=== PATIENT | female | born 1955 | race Caucasian/White ===

== ENCOUNTER → 2016-12-02 | Outpatient (CLI) | payer OTHER ==
[~2016-12-02] MED LIST: ASPIRIN81 M1 PO; CIPROFLOXACIN500 MG PO; FISH OIL 10001000 MG PO; HYDROCHLOROTH12.5 MG PO; LISINOPRIL20 MG PO; NITROSTAT0.4 MG SL; PYRIDIUM200 MG PO; SYNTHROID,LEV100 MCG PO
== END | disposition home or self-care (01) ==
LOC: ORTHO 02:11
DX: M79.641 Pain in right hand (principal); M79.642 Pain in left hand

== ENCOUNTER → 2017-05-04 | Outpatient (CLI) | payer OTHER ==
[2017-05-04 06:04] LABS: BASO # 0.1 10*3/uL (0.0-0.1); BASO % 1.4 % (0.0-1.0); EOS # 0.2 10*3/uL (0.0-0.4); HEMATOCRIT 39.5 % (37.0-47.0); HEMOGLOBIN 12.7 g/dl (12.0-16.0); LYMPH # 1.6 10*3/uL (1.3-4.4); LYMPH % 31.2 % (27.0-41.0); MEAN CELL VOLUME 93.8 fl (81.0-99.0); MEAN CORPUSCULAR HGB 30.2 pg (27.0-31.0); MEAN CORPUSCULAR HGB CONC 32.2 g/dl (33.0-37.0); MONO # 0.6 10*3/uL (0.1-1.0); MONO % 11.4 % (3.0-9.0); NEUT # 2.6 10*3/uL (2.3-7.9); NEUT % 52.8 % (47.0-73.0); PLATELET COUNT AUTOMATED 237 10*3/uL (130-400); RED BLOOD COUNT 4.21 10*6/uL (4.10-5.10); RED CELL DISTRI WIDTH 12.5 % (0-14.5)
[2017-05-04 06:34] LABS: THYROXINE (T4) TOTAL 5.2 ug/dl (4.8-13.9)
[2017-05-04 06:39] LABS: THYROID STIM HORMONE (HS) 0.468 uIU/ml (0.358-4.75)
== END | disposition home or self-care (01) ==
LOC: LAB 05:29
PROVIDERS: Nurse Practitioner Family
DX: R53.83 Other fatigue (principal); R59.1 Generalized enlarged lymph nodes; Z80.7 Family history of other malignant neoplasms of lymphoid, hematopoietic and related tissues

== ENCOUNTER → 2017-05-07 | Outpatient (CLI) | payer OTHER ==
[2017-05-07 08:29] LABS: CREATININE 0.82 mg/dL (0.55-1.02)
== END | disposition home or self-care (01) ==
LOC: LAB 01:53 → CT 09:00 → LAB 09:00
PROVIDERS: Radiology Diagnostic Radiology
DX: R59.1 Generalized enlarged lymph nodes (principal)

== ENCOUNTER → 2019-01-18 | Outpatient (CLI) | payer OTHER ==
[2019-01-18 06:54] LABS: BASO # 0.1 10*3/uL (0.0-0.1); BASO % 1.7 % (0.0-1.0); EOS # 0.1 10*3/uL (0.0-0.4); EOS % 2.7 % (1.0-4.0); HEMATOCRIT 43.7 % (37.0-47.0); LYMPH # 1.5 10*3/uL (1.3-4.4); LYMPH % 35.7 % (27.0-41.0); MEAN CELL VOLUME 93.4 fl (81.0-99.0); MEAN CORPUSCULAR HGB 29.9 pg (27.0-31.0); MEAN PLATELET VOLUME 8.5 fl (9.6-12.3); MONO # 0.5 10*3/uL (0.1-1.0); MONO % 12.1 % (3.0-9.0); NEUT # 1.9 10*3/uL (2.3-7.9); NEUT % 47.6 % (47.0-73.0); PLATELET COUNT AUTOMATED 239 10*3/uL (130-400); RED BLOOD COUNT 4.68 10*6/uL (4.10-5.10); RED CELL DISTRI WIDTH 12.6 % (0-14.5); WHITE BLOOD COUNT 4.1 10*3/uL (4.8-10.8)
[2019-01-18 07:20] LABS: ALKALINE PHOSPHATASE 84 U/L (45-117); BUN 11 mg/dl (7-24); CHLORIDE 107 mmol/L (98-107); CHOLESTEROL 263 mg/dL (<200); FREE T4 0.68 ng/dl (0.76-1.46); HDL CHOLESTEROL 107 mg/dl (40-60); LDL CHOLESTEROL 144 mg/dL (9-159); POTASSIUM 4.3 mmol/L (3.5-5.1); SGOT/AST 21 IU/L (3-35); SGPT/ALT 26 U/L (12-78); SODIUM 142 mmol/L (136-145); TOTAL PROTEIN 7.2 gm/dL (6.4-8.2); TRIGLYCERIDES 60 mg/dl (<150); VLDL CHOLESTEROL 12 mg/dL (6-40)
[2019-01-18 07:25] LABS: THYROID STIM HORMONE (HS) 0.522 uIU/ml (0.358-4.75)
== END | disposition home or self-care (01) ==
LOC: LAB 06:05
PROVIDERS: Nurse Practitioner Family
DX: E03.9 Hypothyroidism, unspecified (principal)

== ENCOUNTER → 2019-12-27 | Outpatient (CLI) | payer OTHER | END | disposition home or self-care (01) | LOC: LAB 07:55 | PROVIDERS: ATTEND Nurse Practitioner Family | DX: E03.9 Hypothyroidism, unspecified (principal) ==

== ENCOUNTER → 2021-03-13 | Outpatient (CLI) | payer OTHER ==
[2021-03-13 13:20] LABS: BILIRUBIN Negative (Negative); BLOOD Negative (Negative); CLARITY Cloudy (Clear); COLOR Yellow (Yellow); GLUCOSE Negative (Negative); KETONE Negative (Negative); LEUKO ESTERASE Trace (Negative); NITRITE Negative (Negative); SPECIFIC GRAVITY 1.025 (1.001-1.030); UROBILINOGEN 0.2 E.U./dl (0.0-1.0)
[2021-03-13 13:20] LABS: BASO # 0.1 10*3/uL (0.0-0.1); BASO % 1.3 % (0.0-1.0); EOS # 0.2 10*3/uL (0.0-0.4); EOS % 2.8 % (1.0-4.0); HEMATOCRIT 40.8 % (37.0-47.0); LYMPH # 1.6 10*3/uL (1.3-4.4); LYMPH % 25.2 % (27.0-41.0); MEAN CELL VOLUME 92.9 fl (81.0-99.0); MEAN CORPUSCULAR HGB 30.8 pg (27.0-31.0); MEAN CORPUSCULAR HGB CONC 33.1 g/dl (33.0-37.0); MEAN PLATELET VOLUME 8.8 fl (9.6-12.3); MONO # 0.6 10*3/uL (0.1-1.0); MONO % 9.4 % (3.0-9.0); NEUT # 3.8 10*3/uL (2.3-7.9); PLATELET COUNT AUTOMATED 267 10*3/uL (130-400); RED BLOOD COUNT 4.39 10*6/uL (4.10-5.10); RED CELL DISTRI WIDTH 12.7 % (0-14.5); RETICULOCYTE % 0.82 % (0.50-2.50); WHITE BLOOD COUNT 6.2 10*3/uL (4.8-10.8)
[2021-03-13 13:34] LABS: RBC 0-2 rbc/hpf (0-2)
[2021-03-13 13:38] LABS: ALBUMIN 3.7 gm/dl (3.1-4.5); ALKALINE PHOSPHATASE 90 U/L (45-117); BUN 15 mg/dl (7-24); CHLORIDE 106 mmol/L (98-107); CHOLESTEROL 271 mg/dL (<200); GAMMA GLUTAMYL TRANSPEPTIDASE 20 U/L (5-55); IRON 106 ug/dL (50-170); LDL CHOLESTEROL 129 mg/dL (9-159); POTASSIUM 3.9 mmol/L (3.5-5.1); SGOT/AST 18 IU/L (3-35); SGPT/ALT 30 U/L (12-78); SODIUM 142 mmol/L (136-145); THYROXINE (T4) TOTAL 5.4 ug/dl (4.8-13.9); TOTAL IRON BINDING CAPACITY 378 ug/dl (250-450); TOTAL PROTEIN 6.9 gm/dL (6.4-8.2); TRIGLYCERIDES 246 mg/dl (<150)
[2021-03-13 13:45] LABS: T3 UPTAKE 35 % (31-39); THYROID STIM HORMONE (HS) 0.737 uIU/ml (0.358-4.75)
[2021-03-13 14:14] LABS: VITAMIN D, 25-HYDROXY 26.5 ng/mL (30-100)
[2021-03-13 14:15] LABS: FERRITIN 96.3 ng/mL (10.0-291.0)
== END | disposition home or self-care (01) ==
LOC: LAB 12:58
PROVIDERS: ATTEND Family Medicine
DX: R06.02 Shortness of breath (principal); R79.89 Other specified abnormal findings of blood chemistry; R53.83 Other fatigue; E78.5 Hyperlipidemia, unspecified; E55.9 Vitamin D deficiency, unspecified

== ENCOUNTER → 2021-12-24 | Outpatient (CLI) | payer OTHER ==
[2021-12-24 10:17] LABS: BASO # 0.1 10*3/uL (0.0-0.1); BASO % 1.3 % (0.0-1.0); BILIRUBIN Negative (Negative); BLOOD Negative (Negative); CLARITY Clear (Clear); COLOR Yellow (Yellow); EOS # 0.1 10*3/uL (0.0-0.4); EOS % 2.8 % (1.0-4.0); GLUCOSE Negative (Negative); HEMATOCRIT 41.8 % (37.0-47.0); KETONE Negative (Negative); LEUKO ESTERASE Negative (Negative); LYMPH # 1.3 10*3/uL (1.3-4.4); LYMPH % 27.4 % (27.0-41.0); MEAN CELL VOLUME 95.2 fl (81.0-99.0); MEAN CORPUSCULAR HGB CONC 32.5 g/dl (33.0-37.0); MEAN PLATELET VOLUME 8.7 fl (9.6-12.3); MONO # 0.4 10*3/uL (0.1-1.0); MONO % 8.1 % (3.0-9.0); NEUT # 2.8 10*3/uL (2.3-7.9); NEUT % 60.2 % (47.0-73.0); NITRITE Negative (Negative); PH 6.5 (4.5-8.0); PLATELET COUNT AUTOMATED 263 10*3/uL (130-400); RED BLOOD COUNT 4.39 10*6/uL (4.10-5.10); RED CELL DISTRI WIDTH 12.7 % (0-14.5); RETICULOCYTE % 1.05 % (0.50-2.50); UROBILINOGEN 0.2 E.U./dl (0.0-1.0); WHITE BLOOD COUNT 4.7 10*3/uL (4.8-10.8)
[2021-12-24 10:37] LABS: ALKALINE PHOSPHATASE 95 U/L (45-117); BACTERIA TRACE; BUN 17 mg/dl (7-24); CHLORIDE 108 mmol/L (98-107); CHOLESTEROL 235 mg/dL (<200); CPK 220 U/L (26-192); CREATININE 0.72 mg/dL (0.55-1.02); EPITHELIAL CELLS 0-2; GAMMA GLUTAMYL TRANSPEPTIDASE 18 U/L (5-55); IRON 88 ug/dL (50-170); LDL CHOLESTEROL 126 mg/dL (9-159); POTASSIUM 4.3 mmol/L (3.5-5.1); RBC 0-2 rbc/hpf (0-2); SGOT/AST 19 IU/L (3-35); SGPT/ALT 24 U/L (12-78); SODIUM 142 mmol/L (136-145); THYROXINE (T4) TOTAL 8.2 ug/dl (4.8-13.9); TRIGLYCERIDES 114 mg/dl (<150); WBC 0-2 wbc/hpf (0-5)
[2021-12-24 10:44] LABS: T3 UPTAKE 31 % (31-39); THYROID STIM HORMONE (HS) 0.161 uIU/ml (0.358-4.75)
[2021-12-24 11:06] LABS: VITAMIN D, 25-HYDROXY 21.4 ng/mL (30-100)
[2021-12-24 11:07] LABS: FERRITIN 109.1 ng/mL (10.0-291.0)
[2021-12-25 04:06] LABS: RHEUMATOID FACTOR 11.8 IU/mL (<14.0)
[2021-12-25 14:08] LABS: ANTI-DSDNA ANTIBODIES 5 IU/mL (0-9)
== END | disposition home or self-care (01) ==
LOC: LAB 09:44
PROVIDERS: ATTEND Family Medicine
DX: E55.9 Vitamin D deficiency, unspecified (principal); E78.5 Hyperlipidemia, unspecified; R79.89 Other specified abnormal findings of blood chemistry; R53.83 Other fatigue

== ENCOUNTER → 2022-03-26 | Outpatient (CLI) | payer OTHER ==
[2022-03-26 17:05] LABS: T3 UPTAKE 22.7 % (22.4-36.7); THYROID STIM HORMONE (HS) 0.171 uIU/ml (0.550-4.780); THYROXINE (T4) TOTAL 4.7 ug/dl (4.5-10.9)
== END | disposition home or self-care (01) ==
LOC: LAB 16:10
PROVIDERS: ATTEND Family Medicine
DX: R79.89 Other specified abnormal findings of blood chemistry (principal); R53.83 Other fatigue

== ENCOUNTER → 2022-05-01 | Outpatient (CLI) | payer OTHER | END | disposition home or self-care (01) | LOC: US 01:07 | PROVIDERS: ATTEND Family Medicine | DX: E03.9 Hypothyroidism, unspecified (principal) ==

== ENCOUNTER → 2022-08-05 | Outpatient (CLI) | payer OTHER ==
[2022-08-05 08:26] LABS: BASO # 0.1 10*3/uL (0.0-0.1); BASO % 1.5 % (0.0-1.0); EOS # 0.2 10*3/uL (0.0-0.4); EOS % 3.2 % (1.0-4.0); HEMATOCRIT 42.9 % (37.0-47.0); LYMPH # 1.3 10*3/uL (1.3-4.4); LYMPH % 26.9 % (27.0-41.0); MEAN CELL VOLUME 92.1 fl (81.0-99.0); MEAN CORPUSCULAR HGB CONC 32.6 g/dl (33.0-37.0); MEAN PLATELET VOLUME 8.5 fl (9.6-12.3); MONO # 0.5 10*3/uL (0.1-1.0); NEUT # 2.7 10*3/uL (2.3-7.9); NEUT % 57.2 % (47.0-73.0); PLATELET COUNT AUTOMATED 274 10*3/uL (130-400); RED BLOOD COUNT 4.66 10*6/uL (4.10-5.10); RED CELL DISTRI WIDTH 12.8 % (0-14.5); WHITE BLOOD COUNT 4.7 10*3/uL (4.8-10.8)
[2022-08-05 08:55] LABS: ALKALINE PHOSPHATASE 94 U/L (46-116); BUN 11 mg/dl (9-23); CHLORIDE 104 mmol/L (98-107); CHOLESTEROL 225 mg/dL (<200); FREE T4 0.91 ng/dl (0.89-1.76); LDL CHOLESTEROL 132 mg/dL (9-159); POTASSIUM 4.2 mmol/L (3.4-5.1); SGPT/ALT 16 U/L (10-49); THYROID STIM HORMONE (HS) 0.541 uIU/ml (0.550-4.780); TOTAL PROTEIN 6.8 gm/dL (6.0-8.0); TRIGLYCERIDES 70 mg/dl (<150)
== END | disposition home or self-care (01) ==
LOC: LAB 07:57
PROVIDERS: ATTEND Family Medicine
DX: E03.9 Hypothyroidism, unspecified (principal); F41.1 Generalized anxiety disorder; I10 Essential (primary) hypertension

== ENCOUNTER → 2023-02-18 | Outpatient (CLI) | payer OTHER ==
[2023-02-18 09:31] LABS: ALKALINE PHOSPHATASE 92 U/L (46-116); BUN 14 mg/dl (9-23); CHLORIDE 103 mmol/L (98-107); CHOLESTEROL 259 mg/dL (<200); FREE T4 0.85 ng/dl (0.89-1.76); LDL CHOLESTEROL 154 mg/dL (9-159); POTASSIUM 4.1 mmol/L (3.4-5.1); SGPT/ALT 17 U/L (5-49); TRIGLYCERIDES 121 mg/dl (<150)
== END | disposition home or self-care (01) ==
LOC: LAB 08:35
PROVIDERS: ATTEND Family Medicine
DX: I10 Essential (primary) hypertension (principal); E03.9 Hypothyroidism, unspecified; E78.01 Familial hypercholesterolemia

== ENCOUNTER → 2023-05-20 | Outpatient (CLI) | payer OTHER ==
[2023-05-20 10:05] LABS: ALKALINE PHOSPHATASE 93 U/L (46-116); BUN 11 mg/dl (9-23); CHLORIDE 101 mmol/L (98-107); CHOLESTEROL 266 mg/dL (<200); LDL CHOLESTEROL 165 mg/dL (9-159); SGPT/ALT 18 U/L (5-49); TOTAL PROTEIN 7.1 gm/dL (6.0-8.0); TRIGLYCERIDES 78 mg/dl (<150)
== END | disposition home or self-care (01) ==
LOC: LAB 09:21
PROVIDERS: ATTEND Obstetrics & Gynecology
DX: I10 Essential (primary) hypertension (principal); E03.9 Hypothyroidism, unspecified; E78.2 Mixed hyperlipidemia

== ENCOUNTER → 2023-06-21 | Outpatient (CLI) | payer OTHER ==
[2023-06-21 09:21] LABS: ALKALINE PHOSPHATASE 88 U/L (46-116); BUN 13 mg/dl (9-23); CHLORIDE 102 mmol/L (98-107); CHOLESTEROL 184 mg/dL (<200); FREE T4 0.83 ng/dl (0.89-1.76); LDL CHOLESTEROL 86 mg/dL (9-159); POTASSIUM 4.2 mmol/L (3.4-5.1); SGPT/ALT 19 U/L (5-49); TOTAL PROTEIN 6.9 gm/dL (6.0-8.0); TRIGLYCERIDES 69 mg/dl (<150)
== END ==
LOC: LAB 07:39
PROVIDERS: ATTEND Obstetrics & Gynecology
DX: I10 Essential (primary) hypertension (principal); E03.9 Hypothyroidism, unspecified; E78.2 Mixed hyperlipidemia

== ENCOUNTER → 2023-11-26 | Outpatient (CLI) | payer OTHER ==
[2023-11-26 07:30] LABS: BASO % 0.8 % (0.0-1.0); EOS # 0.1 10*3/uL (0.0-0.4); EOS % 1.7 % (1.0-4.0); HEMATOCRIT 40.3 % (37.0-47.0); LYMPH # 0.6 10*3/uL (1.3-4.4); LYMPH % 12.2 % (27.0-41.0); MEAN CELL VOLUME 92.2 fl (81.0-99.0); MEAN CORPUSCULAR HGB 30.2 pg (27.0-31.0); MEAN CORPUSCULAR HGB CONC 32.8 g/dl (33.0-37.0); MEAN PLATELET VOLUME 8.2 fl (9.6-12.3); MONO # 0.6 10*3/uL (0.1-1.0); MONO % 11.6 % (3.0-9.0); NEUT # 3.6 10*3/uL (2.3-7.9); NEUT % 73.5 % (47.0-73.0); PLATELET COUNT AUTOMATED 225 10*3/uL (130-400); RED BLOOD COUNT 4.37 10*6/uL (4.10-5.10); RED CELL DISTRI WIDTH 12.4 % (0-14.5); WHITE BLOOD COUNT 4.8 10*3/uL (4.8-10.8)
[2023-11-26 08:05] LABS: ALKALINE PHOSPHATASE 90 U/L (46-116); BUN 11 mg/dl (9-23); CHLORIDE 101 mmol/L (98-107); CHOLESTEROL 218 mg/dL (<200); FREE T4 0.99 ng/dl (0.89-1.76); LDL CHOLESTEROL 133 mg/dL (9-159); POTASSIUM 4.2 mmol/L (3.4-5.1); SGPT/ALT 14 U/L (5-49); TOTAL PROTEIN 6.7 gm/dL (6.0-8.0); TRIGLYCERIDES 75 mg/dl (<150)
== END | disposition home or self-care (01) ==
LOC: LAB 07:13
PROVIDERS: ATTEND Obstetrics & Gynecology
DX: I10 Essential (primary) hypertension (principal); E78.2 Mixed hyperlipidemia; E78.01 Familial hypercholesterolemia

== ENCOUNTER → 2024-06-01 | Outpatient (CLI) | payer OTHER ==
[2024-06-01 08:20] LABS: ALKALINE PHOSPHATASE 80 U/L (46-116); BUN 12 mg/dl (9-23); CHLORIDE 100 mmol/L (98-107); CHOLESTEROL 229 mg/dL (<200); FREE T4 0.95 ng/dl (0.89-1.76); LDL CHOLESTEROL 133 mg/dL (9-159); POTASSIUM 3.8 mmol/L (3.4-5.1); SGPT/ALT 20 U/L (5-49); TRIGLYCERIDES 68 mg/dl (<150)
== END | disposition home or self-care (01) ==
LOC: LAB 07:05
PROVIDERS: ATTEND Family Medicine
DX: I10 Essential (primary) hypertension (principal); E03.9 Hypothyroidism, unspecified; E78.2 Mixed hyperlipidemia; E78.01 Familial hypercholesterolemia

== ENCOUNTER → 2024-11-27 | Outpatient (CLI) | payer OTHER ==
[2024-11-27 09:59] LABS: BASO # 0.1 10*3/uL (0.0-0.1); BASO % 1.6 % (0.0-1.0); EOS # 0.2 10*3/uL (0.0-0.4); EOS % 4.5 % (1.0-4.0); MEAN CELL VOLUME 92.3 fl (81.0-99.0); MEAN CORPUSCULAR HGB 29.8 pg (27.0-31.0); MEAN PLATELET VOLUME 8.8 fl (9.6-12.3); MONO # 0.5 10*3/uL (0.1-1.0); MONO % 10.4 % (3.0-9.0); NEUT # 2.5 10*3/uL (2.3-7.9); NEUT % 56.7 % (47.0-73.0); NUCLEATED RED BLOOD CELL 0.0 % (0.0-0.0); NUCLEATED RED BLOOD CELL 0.0 10*3/uL (0.0-0.0); PLATELET COUNT AUTOMATED 269 10*3/uL (130-400); RED CELL DISTRI WIDTH 13.7 % (0-14.5)
[2024-11-27 10:43] LABS: BUN 16 mg/dl (9-23); FREE T4 0.86 ng/dl (0.89-1.76); LDL CHOLESTEROL 150 mg/dL (9-159); SGPT/ALT 15 U/L (5-49)
== END | disposition home or self-care (01) ==
LOC: LAB 08:35
PROVIDERS: ATTEND Family Medicine
DX: I10 Essential (primary) hypertension (principal); E78.2 Mixed hyperlipidemia; E03.9 Hypothyroidism, unspecified; M47.896 Other spondylosis, lumbar region; L63.9 Alopecia areata, unspecified